=== PATIENT | female | born 1950 | race Caucasian/White ===

== ENCOUNTER 2021-12-08 17:01 | Inpatient (IN) ==
[2021-12-08] MEDS ORDERED: cefTRIAXone 1,000 MG in SODIUM CHLORIDE 0.9% 100 ML IV STA (17:30)
[2021-12-08] MEDS ORDERED: CLINDAMYCIN INJ 900 MG/50 ML PREMIX IV STA (17:30)
[2021-12-08] MEDS ORDERED: MORPHINE 2 MG/1 ML SYRINGE IV STA (17:32)
[2021-12-08] MEDS ORDERED: ONDANSETRON 4 MG/2 ML VIAL IV ONE (17:33)
[2021-12-08 17:55] LABS: INR 1.1; PT Patient Result 11.8 SECS (10.5-12.0)
[2021-12-08 18:05] LABS: Basophils % 0.3 % (0.0-0.8); Eosinophils % 0.4 % (0.00-10.9); Hematocrit 32.5 VOL% (35.7-47.0); Hemoglobin 9.8 GM/DL (12.0-16.0); Immature Granulocytes % 1.4 %; Lymphocytes # 0.7 10*3/uL (1.4-4.0); Lymphocytes % 10.1 % (21.3-54.2); Mean Corpuscular HGB Conc 30.2 GM/DL (32-36); Mean Corpuscular Volume 93.7 FL (87-102); Mean Platelet Volume 9.4 FL (9.6-12.0); Monocytes # 0.3 10*3/uL (0.11-0.8); Monocytes % 3.5 % (1.7-12.7); Neutrophils % 84.3 % (38.7-73.9); Platelet Count 281 T/CUMM (130-400); Red Blood Count 3.47 MC/CUMM (3.8-5.5); Red Cell Distribution Width 15.7 % (9.3-17.3); White Blood Count 7.1 T/CUMM (4-12)
[2021-12-08 18:18] LABS: Alanine Aminotransferase 18 U/L (13-56); Alkaline Phosphatase 185 U/L (45-117); Aspartate Amino Transferase 25 U/L (0-37); Bilirubin,Total < 0.39 MG/DL (0.20-1.00); Blood Urea Nitrogen 68 MG/DL (7-18); Calcium 9.7 MG/DL (8.5-10.1); Carbon Dioxide 19 MMOL/L (21-32); Chloride 110 MMOL/L (98-107); Glucose 104 MG/DL (74-106); Osmolality,Calculated 294.7 MOS/KG (273-304); Potassium 4.9 MMOL/L (3.5-5.1); Sodium 138 MMOL/L (136-145); Total Protein 8.4 G/DL (6.4-8.2)
[2021-12-08] MEDS ORDERED: ASPIRIN CHEW 81 MG TABLET PO STA (19:20)
[2021-12-08 19:50] LABS: Mucus,Urine Occasional /LPF (Occasional); RBC,Urine 78 /HPF (0-4); Squamous Epithelial Cell,Urine Occasional /HPF (0-10)
[2021-12-08 19:51] LABS: Protein,Urine 30 mg/dL (Negative); Urine Appearance Clear (Clear); Urine Color Yellow (Yellow); Urine Specific Gravity 1.015 (1.001-1.035); Urine pH 5.5 (4.5-8.0)
[2021-12-08 19:52] LABS: Bilirubin,Urine Negative (Negative); Blood, Urine Moderate mg/dL (Negative); Glucose,Urine (UA) Negative (Negative); Ketones,Urine Negative (Negative); Nitrite,Urine Negative (Negative); Urine Urobilinogen 0.2 eU/dL (<2.0)
[2021-12-08] MEDS ORDERED: ACETAMINOPHEN 325 MG TABLET PO PRN (21:02)
[2021-12-08] MEDS ORDERED: ONDANSETRON 4 MG/2 ML VIAL IV PRN (21:02)
[2021-12-08] MEDS ORDERED: TEMAZEPAM 15 MG CAPSULE PO PRN (22:17)
[2021-12-08] MEDS: MORPHINE 2 MG/1 ML SYRINGE IV PRN (22:23)
[2021-12-09] MEDS: DOCUSATE SODIUM 100 MG CAPSULE PO SCH ×3 (03:15→20:00)
[2021-12-09] MEDS: MONTELUKAST 10 MG TABLET PO SCH ×2 (03:15→20:00)
[2021-12-09] MEDS: BISOPROLOL 5 MG TABLET PO SCH ×3 (03:15→20:00)
[2021-12-09] MEDS: MORPHINE 2 MG/1 ML SYRINGE IV PRN ×4 (03:35→20:00)
[2021-12-09 05:37] LABS: Basophils % 0.5 % (0.0-0.8); Eosinophils % 0.7 % (0.00-10.9); Hemoglobin 9.8 GM/DL (12.0-16.0); Immature Granulocytes % 1.2 %; Immature Granulocytes Absolute 0.07 #; Lymphocytes # 0.7 10*3/uL (1.4-4.0); Lymphocytes % 11.8 % (21.3-54.2); Mean Corpuscular HGB Conc 30.6 GM/DL (32-36); Mean Corpuscular Volume 93.3 FL (87-102); Mean Platelet Volume 9.6 FL (9.6-12.0); Monocytes # 0.3 10*3/uL (0.11-0.8); Monocytes % 5.1 % (1.7-12.7); Neutrophils % 80.7 % (38.7-73.9); Platelet Count 283 T/CUMM (130-400); Red Blood Count 3.43 MC/CUMM (3.8-5.5); Red Cell Distribution Width 15.9 % (9.3-17.3)
[2021-12-09 05:56] LABS: Alanine Aminotransferase 16 U/L (13-56); Albumin 1.9 G/DL (3.4-5.0); Alkaline Phosphatase 178 U/L (45-117); Aspartate Amino Transferase 22 U/L (0-37); Bilirubin,Total < 0.39 MG/DL (0.20-1.00); Blood Urea Nitrogen 69 MG/DL (7-18); Calcium 8.9 MG/DL (8.5-10.1); Carbon Dioxide 18 MMOL/L (21-32); Chloride 112 MMOL/L (98-107); Cholesterol 104 MG/DL (50-200); Glucose 111 MG/DL (74-106); HDL Cholesterol 21 MG/DL (40-60); Osmolality,Calculated 297.5 MOS/KG (273-304); Potassium 4.6 MMOL/L (3.5-5.1); Risk Ratio 4.95; Sodium 139 MMOL/L (136-145); Total Protein 7.8 G/DL (6.4-8.2); Triglycerides 264 MG/DL (2-150); VLDL Cholesterol 52.8 MG/DL
[2021-12-09] MEDS: LEVOTHYROXINE 75 MCG TABLET PO SCH (05:58)
[2021-12-09 08:00] LABS: Band Neutrophils 14 % (0-10); Eosinophils 1 % (0-10); Lymphocytes 11 % (20-55); Metamyelocytes 2 %; Platelet Estimate Normal; Total Cells Counted 100
[2021-12-09 08:01] LABS: Anisocytosis Slight; Macrocytosis Slight
[2021-12-09] MEDS ORDERED: IPRATROPIUM 0.06% NASAL SPRAY 15 ML BOTTLE BOTH NARES PRN (09:00)
[2021-12-09] MEDS: PANTOPRAZOLE 40 MG TABLET PO SCH (09:35)
[2021-12-09] MEDS: SODIUM CHLORIDE 0.9% 1,000 ML IV SCH (16:53)
[2021-12-09] MEDS: RIVAROXABAN 10 MG TABLET PO SCH (20:00)
[2021-12-10] MEDS: MORPHINE 2 MG/1 ML SYRINGE IV PRN ×3 (00:45→20:40)
[2021-12-10 05:29] LABS: Basophils % 0.5 % (0.0-0.8); Eosinophils # 0.1 10*3/uL (0.0-0.87); Eosinophils % 1.3 % (0.00-10.9); Hematocrit 29.3 VOL% (35.7-47.0); Hemoglobin 8.7 GM/DL (12.0-16.0); Immature Granulocytes % 1.8 %; Lymphocytes # 0.8 10*3/uL (1.4-4.0); Mean Corpuscular HGB Conc 29.7 GM/DL (32-36); Mean Corpuscular Volume 93.6 FL (87-102); Mean Platelet Volume 9.5 FL (9.6-12.0); Monocytes # 0.4 10*3/uL (0.11-0.8); Monocytes % 6.9 % (1.7-12.7); Neutrophils % 75.5 % (38.7-73.9); Platelet Count 281 T/CUMM (130-400); Red Blood Count 3.13 MC/CUMM (3.8-5.5); White Blood Count 5.5 T/CUMM (4-12)
[2021-12-10 05:44] LABS: Calcium 8.5 MG/DL (8.5-10.1); Osmolality,Calculated 296.4 MOS/KG (273-304); Potassium 4.3 MMOL/L (3.5-5.1)
[2021-12-10] MEDS ORDERED: fentaNYL 100 MCG/2 ML VIAL ONE (07:26)
[2021-12-10] MEDS ORDERED: LIDOCAINE 1%/EPI INJ 20 ML VIAL ONE (07:27)
[2021-12-10] MEDS ORDERED: BUPIVACAINE MPF 0.25% 10 ML VIAL ONE (07:27)
[2021-12-10] MEDS ORDERED: MIDAZOLAM 2 MG/2 ML VIAL ONE (07:27)
[2021-12-10] MEDS ORDERED: diphenhydrAMINE 50 MG/1 ML VIAL IV PRN (07:29)
[2021-12-10] MEDS ORDERED: ONDANSETRON 4 MG/2 ML VIAL IV PRN (07:29)
[2021-12-10] MEDS ORDERED: PROMETHAZINE INJ 25 MG in SODIUM CHLORIDE 0.9% 50 ML IV PRN (07:29)
[2021-12-10] MEDS ORDERED: HYDROmorphone 1 MG/1 ML SYRINGE IV PRN (07:29)
[2021-12-10] MEDS: SODIUM CHLORIDE 0.9% 1,000 ML IV SCH ×3 (08:06→20:40)
[2021-12-10] MEDS: LEVOTHYROXINE 75 MCG TABLET PO SCH (08:08)
[2021-12-10] MEDS ORDERED: CLINDAMYCIN INJ 600 MG/50 ML PREMIX IV ONE (08:33)
[2021-12-10] MEDS ORDERED: propofoL 200 MG/20 ML VIAL IV ONE ×2 (08:44→08:52)
[2021-12-10] MEDS ORDERED: LIDOCAINE 2% 5 ML VIAL ONE (08:44)
[2021-12-10] MEDS: MEPERIDINE 25 MG/1 ML VIAL IV PRN ×2 (09:10→09:20)
[2021-12-10] MEDS: PANTOPRAZOLE 40 MG TABLET PO SCH (10:12)
[2021-12-10] MEDS: DOCUSATE SODIUM 100 MG CAPSULE PO SCH ×2 (10:12→20:40)
[2021-12-10] MEDS: BISOPROLOL 5 MG TABLET PO SCH ×2 (10:13→20:40)
[2021-12-10] MEDS: ALBUMIN 25% 25 GM/100 ML VIAL IV SCH ×2 (11:16→18:45)
[2021-12-10] MEDS: CLINDAMYCIN INJ 600 MG/50 ML PREMIX IV SCH ×3 (11:16→21:00)
[2021-12-10] MEDS: MEROPENEM 500 MG in SODIUM CHLORIDE 0.9% 100 ML IV SCH (15:54)
[2021-12-10] MEDS: MONTELUKAST 10 MG TABLET PO SCH (20:40)
[2021-12-10] MEDS: MIRTAZAPINE 15 MG TABLET PO SCH (20:40)
[2021-12-11] MEDS: ALBUMIN 25% 25 GM/100 ML VIAL IV SCH ×3 (01:00→19:19)
[2021-12-11] MEDS: MEROPENEM 500 MG in SODIUM CHLORIDE 0.9% 100 ML IV SCH (02:00)
[2021-12-11] MEDS: CLINDAMYCIN INJ 600 MG/50 ML PREMIX IV SCH ×4 (03:00→22:02)
[2021-12-11] MEDS: LEVOTHYROXINE 75 MCG TABLET PO SCH (05:30)
[2021-12-11 05:41] LABS: Basophils % 0.8 % (0.0-0.8); Eosinophils # 0.2 10*3/uL (0.0-0.87); Eosinophils % 4.6 % (0.00-10.9); Hematocrit 22.8 VOL% (35.7-47.0); Hemoglobin 6.9 GM/DL (12.0-16.0); Immature Granulocytes % 2.8 %; Immature Granulocytes Absolute 0.14 #; Lymphocytes # 0.9 10*3/uL (1.4-4.0); Lymphocytes % 18.4 % (21.3-54.2); Mean Corpuscular HGB Conc 30.3 GM/DL (32-36); Mean Corpuscular Volume 94.2 FL (87-102); Mean Platelet Volume 9.8 FL (9.6-12.0); Monocytes # 0.4 10*3/uL (0.11-0.8); Monocytes % 7.8 % (1.7-12.7); Neutrophils % 65.6 % (38.7-73.9); Platelet Count 240 T/CUMM (130-400); Red Blood Count 2.42 MC/CUMM (3.8-5.5); Red Cell Distribution Width 15.8 % (9.3-17.3)
[2021-12-11 06:09] LABS: Calcium 8.6 MG/DL (8.5-10.1); Osmolality,Calculated 294.4 MOS/KG (273-304)
[2021-12-11] MEDS: MORPHINE 2 MG/1 ML SYRINGE IV PRN ×2 (08:03→11:16)
[2021-12-11] MEDS: PANTOPRAZOLE 40 MG TABLET PO SCH (08:10)
[2021-12-11] MEDS: BISOPROLOL 5 MG TABLET PO SCH ×2 (08:10→21:17)
[2021-12-11] MEDS: DOCUSATE SODIUM 100 MG CAPSULE PO SCH ×2 (08:10→21:17)
[2021-12-11] MEDS ORDERED: SODIUM CHLORIDE 0.9% 1,000 ML IV PRN (11:42)
[2021-12-11] MEDS: HYDROmorphone 1 MG/1 ML SYRINGE IV PRN (17:48)
[2021-12-11] MEDS: SODIUM CHLORIDE 0.9% 1,000 ML IV SCH (19:43)
[2021-12-11] MEDS: MIRTAZAPINE 15 MG TABLET PO SCH (21:16)
[2021-12-11] MEDS: MONTELUKAST 10 MG TABLET PO SCH (21:17)
[2021-12-12] MEDS: SODIUM CHLORIDE 0.9% 1,000 ML IV SCH ×2 (00:49→17:27)
[2021-12-12] MEDS: ALBUMIN 25% 25 GM/100 ML VIAL IV SCH ×2 (02:23→15:23)
[2021-12-12] MEDS: HYDROmorphone 1 MG/1 ML SYRINGE IV PRN ×5 (03:49→21:15)
[2021-12-12] MEDS: CLINDAMYCIN INJ 600 MG/50 ML PREMIX IV SCH ×4 (04:05→21:15)
[2021-12-12 04:55] LABS: Basophils % 0.8 % (0.0-0.8); Eosinophils # 0.2 10*3/uL (0.0-0.87); Eosinophils % 4.8 % (0.00-10.9); Hematocrit 25.3 VOL% (35.7-47.0); Hemoglobin 7.7 GM/DL (12.0-16.0); Lymphocytes % 20.6 % (21.3-54.2); Mean Corpuscular HGB Conc 30.4 GM/DL (32-36); Mean Corpuscular Volume 91.7 FL (87-102); Monocytes # 0.4 10*3/uL (0.11-0.8); Monocytes % 7.9 % (1.7-12.7); Neutrophils % 61.9 % (38.7-73.9); Platelet Count 252 T/CUMM (130-400); Red Blood Count 2.76 MC/CUMM (3.8-5.5); Red Cell Distribution Width 16.9 % (9.3-17.3); White Blood Count 5.1 T/CUMM (4-12)
[2021-12-12 05:15] LABS: Albumin 2.8 G/DL (3.4-5.0); Bilirubin,Direct 0.11 MG/DL (0.0-0.20); Bilirubin,Indirect 0.3 MG/DL (0.0-1.0); Bilirubin,Total 0.4 MG/DL (0.20-1.00)
[2021-12-12 05:17] LABS: Calcium 8.8 MG/DL (8.5-10.1); Osmolality,Calculated 293.5 MOS/KG (273-304); Potassium 4.2 MMOL/L (3.5-5.1)
[2021-12-12] MEDS: LEVOTHYROXINE 75 MCG TABLET PO SCH (05:53)
[2021-12-12] MEDS ORDERED: propofoL 200 MG/20 ML VIAL IV ONE ×3 (11:55→13:07)
[2021-12-12] MEDS ORDERED: LIDOCAINE 2% 5 ML VIAL ONE (11:55)
[2021-12-12] MEDS ORDERED: ONDANSETRON 4 MG/2 ML VIAL ONE (11:55)
[2021-12-12] MEDS ORDERED: fentaNYL 100 MCG/2 ML VIAL ONE (11:55)
[2021-12-12] MEDS ORDERED: MIDAZOLAM 2 MG/2 ML VIAL ONE (11:55)
[2021-12-12] MEDS ORDERED: BUPIVACAINE MPF 0.25% 10 ML VIAL ONE (12:11)
[2021-12-12] MEDS ORDERED: LIDOCAINE 1%/EPI INJ 20 ML VIAL ONE (12:12)
[2021-12-12] MEDS ORDERED: GLYCOPYRROLATE 0.4 MG/2 ML VIAL ONE (12:29)
[2021-12-12] MEDS ORDERED: KETAMINE 500 MG/10 ML VIAL ONE (12:29)
[2021-12-12] MEDS ORDERED: ONDANSETRON 4 MG/2 ML VIAL IV PRN (13:57)
[2021-12-12] MEDS ORDERED: SODIUM CHLORIDE 0.9% 1,000 ML IV PRN (14:57)
[2021-12-12] MEDS: DOCUSATE SODIUM 100 MG CAPSULE PO SCH ×2 (15:05→21:15)
[2021-12-12] MEDS: BISOPROLOL 5 MG TABLET PO SCH ×2 (15:28→21:15)
[2021-12-12] MEDS: PANTOPRAZOLE 40 MG TABLET PO SCH (17:26)
[2021-12-12] MEDS: FLUCONAZOLE INJ 200 MG/100 ML PREMIX IV SCH (18:06)
[2021-12-12] MEDS: MIRTAZAPINE 15 MG TABLET PO SCH (21:15)
[2021-12-12] MEDS: MONTELUKAST 10 MG TABLET PO SCH (21:15)
[2021-12-13] MEDS: ALBUMIN 25% 25 GM/100 ML VIAL IV SCH ×3 (03:52→22:51)
[2021-12-13] MEDS: HYDROmorphone 1 MG/1 ML SYRINGE IV PRN ×4 (03:53→20:42)
[2021-12-13 05:36] LABS: Basophils % 0.5 % (0.0-0.8); Eosinophils # 0.2 10*3/uL (0.0-0.87); Eosinophils % 3.8 % (0.00-10.9); Hematocrit 29.4 VOL% (35.7-47.0); Immature Granulocytes % 4.9 %; Immature Granulocytes Absolute 0.31 #; Lymphocytes # 0.9 10*3/uL (1.4-4.0); Lymphocytes % 14.2 % (21.3-54.2); Mean Corpuscular HGB Conc 30.6 GM/DL (32-36); Mean Corpuscular Volume 89.6 FL (87-102); Monocytes # 0.4 10*3/uL (0.11-0.8); Monocytes % 6.5 % (1.7-12.7); Neutrophils % 70.1 % (38.7-73.9); Platelet Count 307 T/CUMM (130-400); Red Blood Count 3.28 MC/CUMM (3.8-5.5); Red Cell Distribution Width 16.9 % (9.3-17.3); White Blood Count 6.3 T/CUMM (4-12)
[2021-12-13] MEDS: LEVOTHYROXINE 75 MCG TABLET PO SCH (05:53)
[2021-12-13] MEDS: CLINDAMYCIN INJ 600 MG/50 ML PREMIX IV SCH ×4 (05:53→22:03)
[2021-12-13 05:57] LABS: Calcium 8.9 MG/DL (8.5-10.1); Osmolality,Calculated 291.4 MOS/KG (273-304); Potassium 4.3 MMOL/L (3.5-5.1)
[2021-12-13] MEDS: LACTATED RINGERS 1,000 ML IV SCH (11:03)
[2021-12-13] MEDS ORDERED: ETOMIDATE 20 MG/10 ML VIAL IV ONE (11:21)
[2021-12-13] MEDS ORDERED: propofoL 200 MG/20 ML VIAL IV ONE ×2 (11:21→13:28)
[2021-12-13] MEDS ORDERED: LIDOCAINE 2% 5 ML VIAL ONE ×2 (11:21→13:28)
[2021-12-13] MEDS: SODIUM CHLORIDE 0.9% 1,000 ML IV SCH (12:00)
[2021-12-13] MEDS ORDERED: MIDAZOLAM 2 MG/2 ML VIAL ONE (12:43)
[2021-12-13] MEDS ORDERED: fentaNYL 100 MCG/2 ML VIAL ONE (12:43)
[2021-12-13] MEDS ORDERED: BUPIVACAINE MPF 0.25% 10 ML VIAL ONE (13:04)
[2021-12-13] MEDS ORDERED: LIDOCAINE 1%/EPI INJ 20 ML VIAL ONE (13:04)
[2021-12-13] MEDS ORDERED: ONDANSETRON 4 MG/2 ML VIAL ONE (13:28)
[2021-12-13] MEDS: BISOPROLOL 5 MG TABLET PO SCH ×2 (14:52→20:41)
[2021-12-13] MEDS: DOCUSATE SODIUM 100 MG CAPSULE PO SCH ×2 (14:52→20:41)
[2021-12-13] MEDS: PANTOPRAZOLE 40 MG TABLET PO SCH (14:54)
[2021-12-13] MEDS: SODIUM BICARB INJ 50 MEQ in DEXTROSE 5% NACL 0.45% 1,000 ML IV SCH (16:01)
[2021-12-13] MEDS: FLUCONAZOLE INJ 200 MG/100 ML PREMIX IV SCH (17:23)
[2021-12-13] MEDS: MONTELUKAST 10 MG TABLET PO SCH (20:41)
[2021-12-13] MEDS: MIRTAZAPINE 15 MG TABLET PO SCH (20:41)
[2021-12-13] MEDS: RIVAROXABAN 10 MG TABLET PO SCH (20:42)
[2021-12-14] MEDS: SODIUM BICARB INJ 50 MEQ in DEXTROSE 5% NACL 0.45% 1,000 ML IV SCH (02:29)
[2021-12-14 05:46] LABS: Basophils % 0.6 % (0.0-0.8); Eosinophils # 0.2 10*3/uL (0.0-0.87); Eosinophils % 4.7 % (0.00-10.9); Hematocrit 25.5 VOL% (35.7-47.0); Hemoglobin 7.8 GM/DL (12.0-16.0); Immature Granulocytes Absolute 0.14 #; Lymphocytes # 0.9 10*3/uL (1.4-4.0); Lymphocytes % 18.7 % (21.3-54.2); Mean Corpuscular HGB Conc 30.6 GM/DL (32-36); Mean Corpuscular Volume 88.9 FL (87-102); Mean Platelet Volume 10.5 FL (9.6-12.0); Monocytes # 0.3 10*3/uL (0.11-0.8); Monocytes % 5.7 % (1.7-12.7); Neutrophils % 67.3 % (38.7-73.9); Platelet Count 278 T/CUMM (130-400); Red Blood Count 2.87 MC/CUMM (3.8-5.5); Red Cell Distribution Width 17.3 % (9.3-17.3); White Blood Count 4.7 T/CUMM (4-12)
[2021-12-14 06:04] LABS: Albumin 3.6 G/DL (3.4-5.0); Bilirubin,Total 0.4 MG/DL (0.20-1.00); Calcium 8.7 MG/DL (8.5-10.1); Osmolality,Calculated 292.3 MOS/KG (273-304); Potassium 3.6 MMOL/L (3.5-5.1); Total Protein 7.1 G/DL (6.4-8.2)
[2021-12-14] MEDS: CLINDAMYCIN INJ 600 MG/50 ML PREMIX IV SCH ×4 (06:04→21:34)
[2021-12-14] MEDS: LEVOTHYROXINE 75 MCG TABLET PO SCH (06:04)
[2021-12-14 06:51] LABS: Anisocytosis 1+; Platelet Estimate Adequate
[2021-12-14] MEDS: ALBUMIN 25% 25 GM/100 ML VIAL IV SCH ×2 (10:00→18:10)
[2021-12-14] MEDS: PANTOPRAZOLE 40 MG TABLET PO SCH (10:01)
[2021-12-14] MEDS: DOCUSATE SODIUM 100 MG CAPSULE PO SCH ×2 (10:01→21:27)
[2021-12-14] MEDS: BISOPROLOL 5 MG TABLET PO SCH ×2 (10:01→21:27)
[2021-12-14] MEDS: LACTATED RINGERS 1,000 ML IV SCH (10:02)
[2021-12-14] MEDS ORDERED: MAGNESIUM SULF RIDER 2 GM/50 ML PREMIX IV ONE (10:38)
[2021-12-14] MEDS ORDERED: SODIUM CHLORIDE 0.9% 1,000 ML IV PRN (10:45)
[2021-12-14] MEDS: SODIUM CHLORIDE 0.45% 1,000 ML IV SCH (11:27)
[2021-12-14] MEDS: FLUCONAZOLE INJ 200 MG/100 ML PREMIX IV SCH (18:10)
[2021-12-14] MEDS: FERROUS SULFATE 325 MG TABLET PO SCH (21:27)
[2021-12-14] MEDS: MIRTAZAPINE 15 MG TABLET PO SCH (21:27)
[2021-12-14] MEDS: MONTELUKAST 10 MG TABLET PO SCH (21:27)
[2021-12-15] MEDS: ALBUMIN 25% 25 GM/100 ML VIAL IV SCH ×4 (00:42→23:21)
[2021-12-15 04:47] LABS: Basophils % 0.8 % (0.0-0.8); Eosinophils # 0.2 10*3/uL (0.0-0.87); Eosinophils % 5.9 % (0.00-10.9); Hematocrit 28.2 VOL% (35.7-47.0); Hemoglobin 8.9 GM/DL (12.0-16.0); Immature Granulocytes % 3.5 %; Immature Granulocytes Absolute 0.13 #; Lymphocytes # 0.7 10*3/uL (1.4-4.0); Lymphocytes % 19.7 % (21.3-54.2); Mean Corpuscular HGB Conc 31.6 GM/DL (32-36); Mean Corpuscular Volume 88.4 FL (87-102); Mean Platelet Volume 10.8 FL (9.6-12.0); Monocytes # 0.2 10*3/uL (0.11-0.8); Monocytes % 5.6 % (1.7-12.7); Neutrophils % 64.5 % (38.7-73.9); Platelet Count 224 T/CUMM (130-400); Red Blood Count 3.19 MC/CUMM (3.8-5.5); Red Cell Distribution Width 16.8 % (9.3-17.3); White Blood Count 3.8 T/CUMM (4-12)
[2021-12-15 05:10] LABS: Albumin 3.8 G/DL (3.4-5.0); Bilirubin,Total 0.5 MG/DL (0.20-1.00); Calcium 8.7 MG/DL (8.5-10.1); Osmolality,Calculated 288.4 MOS/KG (273-304); Potassium 3.3 MMOL/L (3.5-5.1); Total Protein 7.1 G/DL (6.4-8.2)
[2021-12-15 05:17] LABS: Hypochromia Slight; Platelet Estimate Normal
[2021-12-15] MEDS: CLINDAMYCIN INJ 600 MG/50 ML PREMIX IV SCH ×4 (06:37→21:44)
[2021-12-15] MEDS: SODIUM CHLORIDE 0.45% 1,000 ML IV SCH ×3 (06:37→17:17)
[2021-12-15] MEDS: LEVOTHYROXINE 75 MCG TABLET PO SCH (06:39)
[2021-12-15] MEDS ORDERED: LIDOCAINE 2% 5 ML VIAL ONE (08:09)
[2021-12-15] MEDS ORDERED: propofoL 200 MG/20 ML VIAL IV ONE (08:09)
[2021-12-15] MEDS ORDERED: ONDANSETRON 4 MG/2 ML VIAL ONE (08:09)
[2021-12-15] MEDS ORDERED: fentaNYL 100 MCG/2 ML VIAL ONE (08:10)
[2021-12-15] MEDS: LACTATED RINGERS 1,000 ML IV SCH (09:19)
[2021-12-15] MEDS ORDERED: SEVOFLURANE 1 UNIT/15 MINUTE INH ONE (09:19)
[2021-12-15] MEDS ORDERED: ONDANSETRON 4 MG/2 ML VIAL IV PRN (09:24)
[2021-12-15] MEDS: HYDROmorphone 1 MG/1 ML SYRINGE IV PRN ×2 (09:27→09:32)
[2021-12-15] MEDS: FERROUS SULFATE 325 MG TABLET PO SCH ×2 (10:24→21:46)
[2021-12-15] MEDS: BISOPROLOL 5 MG TABLET PO SCH ×2 (10:24→21:46)
[2021-12-15] MEDS: PANTOPRAZOLE 40 MG TABLET PO SCH (10:24)
[2021-12-15] MEDS: LORATADINE 10 MG TABLET PO PRN (10:24)
[2021-12-15] MEDS: ASPIRIN EC 81 MG TABLET PO SCH (10:25)
[2021-12-15] MEDS: DOCUSATE SODIUM 100 MG CAPSULE PO SCH ×2 (10:25→21:46)
[2021-12-15] MEDS ORDERED: POTASSIUM CHLORIDE RIDER 10 MEQ/100 ML PREMIX IV PRN (14:08)
[2021-12-15] MEDS ORDERED: POTASSIUM CHLORIDE 20 MEQ TABLET PO PRN (14:08)
[2021-12-15] MEDS: FLUCONAZOLE INJ 200 MG/100 ML PREMIX IV SCH (16:48)
[2021-12-15] MEDS: MIRTAZAPINE 15 MG TABLET PO SCH (21:46)
[2021-12-15] MEDS: MONTELUKAST 10 MG TABLET PO SCH (21:46)
[2021-12-16] MEDS: SODIUM CHLORIDE 0.45% 1,000 ML IV SCH ×2 (03:10→13:49)
[2021-12-16] MEDS: CLINDAMYCIN INJ 600 MG/50 ML PREMIX IV SCH ×4 (05:04→21:27)
[2021-12-16] MEDS: LEVOTHYROXINE 75 MCG TABLET PO SCH (05:04)
[2021-12-16 05:56] LABS: Basophils % 1.1 % (0.0-0.8); Eosinophils # 0.2 10*3/uL (0.0-0.87); Eosinophils % 5.7 % (0.00-10.9); Hematocrit 30.8 VOL% (35.7-47.0); Hemoglobin 9.6 GM/DL (12.0-16.0); Immature Granulocytes Absolute 0.14 #; Lymphocytes # 0.8 10*3/uL (1.4-4.0); Lymphocytes % 23.6 % (21.3-54.2); Mean Corpuscular HGB Conc 31.2 GM/DL (32-36); Mean Corpuscular Volume 87.5 FL (87-102); Mean Platelet Volume 10.7 FL (9.6-12.0); Monocytes # 0.1 10*3/uL (0.11-0.8); Neutrophils % 61.6 % (38.7-73.9); Platelet Count 248 T/CUMM (130-400); Red Blood Count 3.52 MC/CUMM (3.8-5.5); Red Cell Distribution Width 17.2 % (9.3-17.3); White Blood Count 3.5 T/CUMM (4-12)
[2021-12-16 06:26] LABS: Albumin 4.1 G/DL (3.4-5.0); Bilirubin,Total 0.5 MG/DL (0.20-1.00); Calcium 8.6 MG/DL (8.5-10.1); Osmolality,Calculated 284.5 MOS/KG (273-304); Potassium 3.2 MMOL/L (3.5-5.1); Total Protein 7.6 G/DL (6.4-8.2)
[2021-12-16 06:29] LABS: Band Neutrophils 2 % (0-10); Eosinophils 8 % (0-10); Lymphocytes 30 % (20-55); Total Cells Counted 100
[2021-12-16 06:30] LABS: Hypochromia Slight; Microcytosis 1+; Platelet Estimate Normal
[2021-12-16] MEDS: DOCUSATE SODIUM 100 MG CAPSULE PO SCH ×2 (09:33→21:27)
[2021-12-16] MEDS: LORATADINE 10 MG TABLET PO PRN (09:33)
[2021-12-16] MEDS: ASPIRIN EC 81 MG TABLET PO SCH (09:34)
[2021-12-16] MEDS: BISOPROLOL 5 MG TABLET PO SCH ×2 (09:34→21:26)
[2021-12-16] MEDS: FERROUS SULFATE 325 MG TABLET PO SCH ×2 (09:34→21:27)
[2021-12-16] MEDS: LACTATED RINGERS 1,000 ML IV SCH (09:35)
[2021-12-16] MEDS: ALBUMIN 25% 25 GM/100 ML VIAL IV SCH ×2 (09:35→14:56)
[2021-12-16] MEDS: PANTOPRAZOLE 40 MG TABLET PO SCH (09:36)
[2021-12-16] MEDS: FLUCONAZOLE INJ 200 MG/100 ML PREMIX IV SCH (16:09)
[2021-12-16] MEDS: MONTELUKAST 10 MG TABLET PO SCH (21:26)
[2021-12-16] MEDS: MIRTAZAPINE 15 MG TABLET PO SCH (21:27)
[2021-12-16] MEDS: traMADol 50 MG TABLET PO PRN (21:27)
[2021-12-17] MEDS: ALBUMIN 25% 25 GM/100 ML VIAL IV SCH ×2 (02:56→09:39)
[2021-12-17] MEDS: SODIUM CHLORIDE 0.45% 1,000 ML IV SCH ×3 (05:50→22:34)
[2021-12-17] MEDS: CLINDAMYCIN INJ 600 MG/50 ML PREMIX IV SCH ×4 (07:04→19:07)
[2021-12-17] MEDS: LEVOTHYROXINE 75 MCG TABLET PO SCH (07:22)
[2021-12-17] MEDS: BISOPROLOL 5 MG TABLET PO SCH ×2 (09:36→21:05)
[2021-12-17] MEDS: PANTOPRAZOLE 40 MG TABLET PO SCH (09:36)
[2021-12-17] MEDS: FERROUS SULFATE 325 MG TABLET PO SCH ×2 (09:36→21:05)
[2021-12-17] MEDS: ASPIRIN EC 81 MG TABLET PO SCH (09:36)
[2021-12-17] MEDS: DOCUSATE SODIUM 100 MG CAPSULE PO SCH ×2 (09:39→21:07)
[2021-12-17] MEDS ORDERED: MAGNESIUM SULF RIDER 2 GM/50 ML PREMIX IV ONE (10:35)
[2021-12-17] MEDS: LACTATED RINGERS 1,000 ML IV SCH (11:00)
[2021-12-17] MEDS: FLUCONAZOLE INJ 200 MG/100 ML PREMIX IV SCH (16:44)
[2021-12-17] MEDS: MIRTAZAPINE 15 MG TABLET PO SCH (21:05)
[2021-12-17] MEDS: MONTELUKAST 10 MG TABLET PO SCH (21:05)
[2021-12-18] MEDS: CLINDAMYCIN INJ 600 MG/50 ML PREMIX IV SCH ×4 (00:28→20:39)
[2021-12-18] MEDS: traMADol 50 MG TABLET PO PRN ×3 (02:25→22:39)
[2021-12-18] MEDS: LEVOTHYROXINE 75 MCG TABLET PO SCH (06:23)
[2021-12-18] MEDS: PANTOPRAZOLE 40 MG TABLET PO SCH (08:42)
[2021-12-18] MEDS: BISOPROLOL 5 MG TABLET PO SCH ×2 (08:42→20:39)
[2021-12-18] MEDS: ASPIRIN EC 81 MG TABLET PO SCH (08:42)
[2021-12-18] MEDS: FERROUS SULFATE 325 MG TABLET PO SCH ×2 (08:43→20:39)
[2021-12-18] MEDS: SODIUM CHLORIDE 0.45% 1,000 ML IV SCH ×2 (09:45→22:39)
[2021-12-18] MEDS: DOCUSATE SODIUM 100 MG CAPSULE PO SCH (11:14)
[2021-12-18] MEDS: FLUCONAZOLE INJ 200 MG/100 ML PREMIX IV SCH (15:59)
[2021-12-18] MEDS ORDERED: POTASSIUM CHLORIDE 20 MEQ TABLET PO ONE (16:58)
[2021-12-18] MEDS: MIRTAZAPINE 15 MG TABLET PO SCH (20:39)
[2021-12-18] MEDS: MONTELUKAST 10 MG TABLET PO SCH (20:39)
[2021-12-19] MEDS: DOCUSATE SODIUM 100 MG CAPSULE PO SCH ×2 (01:56→09:46)
[2021-12-19] MEDS: CLINDAMYCIN INJ 600 MG/50 ML PREMIX IV SCH ×2 (03:52→06:45)
[2021-12-19 04:13] LABS: Basophils # 0.1 10*3/uL (0.0-0.2); Basophils % 1.3 % (0.0-0.8); Eosinophils # 0.1 10*3/uL (0.0-0.87); Eosinophils % 3.5 % (0.00-10.9); Hematocrit 32.4 VOL% (35.7-47.0); Hemoglobin 10.1 GM/DL (12.0-16.0); Immature Granulocytes % 1.8 %; Immature Granulocytes Absolute 0.07 #; Lymphocytes % 24.7 % (21.3-54.2); Mean Corpuscular HGB Conc 31.2 GM/DL (32-36); Mean Corpuscular Volume 88.5 FL (87-102); Mean Platelet Volume 10.2 FL (9.6-12.0); Monocytes # 0.2 10*3/uL (0.11-0.8); Monocytes % 3.8 % (1.7-12.7); Neutrophils % 64.9 % (38.7-73.9); Platelet Count 230 T/CUMM (130-400); Red Blood Count 3.66 MC/CUMM (3.8-5.5); Red Cell Distribution Width 17.6 % (9.3-17.3)
[2021-12-19 04:35] LABS: Albumin 3.7 G/DL (3.4-5.0); Bilirubin,Total 0.5 MG/DL (0.20-1.00); Calcium 8.7 MG/DL (8.5-10.1); Osmolality,Calculated 278.8 MOS/KG (273-304); Potassium 4.3 MMOL/L (3.5-5.1); Total Protein 7.8 G/DL (6.4-8.2)
[2021-12-19] MEDS: LEVOTHYROXINE 75 MCG TABLET PO SCH (06:45)
[2021-12-19] MEDS ORDERED: POTASSIUM CHLORIDE 20 MEQ TABLET PO SCH (09:00)
[2021-12-19] MEDS: BISOPROLOL 5 MG TABLET PO SCH (09:43)
[2021-12-19] MEDS: FERROUS SULFATE 325 MG TABLET PO SCH (09:43)
[2021-12-19] MEDS: ASPIRIN EC 81 MG TABLET PO SCH (09:44)
[2021-12-19] MEDS: PANTOPRAZOLE 40 MG TABLET PO SCH (09:44)
[2021-12-19] MEDS: SODIUM CHLORIDE 0.45% 1,000 ML IV SCH ×2 (09:51→16:20)
[2021-12-19] MEDS: LACTATED RINGERS 1,000 ML IV SCH ×2 (09:54→15:12)
[2021-12-19 12:25] VITALS: BP 120/50
[2021-12-19] MEDS ORDERED: cephALEXin 500 MG CAPSULE PO SCH (21:00)
== END 2021-12-19 16:35 | disposition home health service (06) | DRG 571 ==
LOC: EDUNIT# → EDBD → N.EDINP 17:01 → N.ED 17:01 → N.TELES 12-09 04:14
PROVIDERS: ADMIT Internal Medicine; ATTEND Internal Medicine

== ENCOUNTER 2021-12-24 08:34 | Inpatient (IN) ==
[2021-12-24] MEDS ORDERED: ALBUTEROL/IPRATROPIUM 3 ML NEB RESP TX STA (09:23)
[2021-12-24 09:34] LABS: Basophils # 0.1 10*3/uL (0.0-0.2); Basophils % 1.5 % (0.0-0.8); Hematocrit 30.2 VOL% (35.7-47.0); Hemoglobin 9.2 GM/DL (12.0-16.0); Immature Granulocytes % 0.9 %; Immature Granulocytes Absolute 0.03 #; Lymphocytes % 30.6 % (21.3-54.2); Mean Corpuscular HGB Conc 30.5 GM/DL (32-36); Mean Corpuscular Volume 91.2 FL (87-102); Mean Platelet Volume 11.7 FL (9.6-12.0); Monocytes # 0.2 10*3/uL (0.11-0.8); Monocytes % 4.6 % (1.7-12.7); Neutrophils % 62.4 % (38.7-73.9); Platelet Count 136 T/CUMM (130-400); Red Blood Count 3.31 MC/CUMM (3.8-5.5); Red Cell Distribution Width 18.4 % (9.3-17.3); White Blood Count 3.2 T/CUMM (4-12)
[2021-12-24 09:50] LABS: Alanine Aminotransferase 17 U/L (13-56); Albumin 3.3 G/DL (3.4-5.0); Alkaline Phosphatase 180 U/L (45-117); Aspartate Amino Transferase 34 U/L (0-37); Bilirubin,Total < 0.39 MG/DL (0.20-1.00); Blood Urea Nitrogen 41 MG/DL (7-18); Calcium 8.7 MG/DL (8.5-10.1); Carbon Dioxide 19 MMOL/L (21-32); Chloride 112 MMOL/L (98-107); Glucose 114 MG/DL (74-106); Osmolality,Calculated 293.1 MOS/KG (273-304); Sodium 142 MMOL/L (136-145); Total Protein 7.8 G/DL (6.4-8.2)
[2021-12-24] MEDS: CLINDAMYCIN INJ 600 MG/50 ML PREMIX IV SCH ×2 (12:00→20:51)
[2021-12-24] MEDS ORDERED: ONDANSETRON 4 MG/2 ML VIAL IV PRN (13:11)
[2021-12-24] MEDS ORDERED: ACETAMINOPHEN 325 MG TABLET PO PRN ×2 (13:11→14:02)
[2021-12-24] MEDS ORDERED: LORATADINE 10 MG TABLET PO PRN (14:02)
[2021-12-24] MEDS ORDERED: DOCUSATE SODIUM 100 MG CAPSULE PO PRN (14:02)
[2021-12-24] MEDS ORDERED: traMADol 50 MG TABLET PO PRN (14:02)
[2021-12-24] MEDS ORDERED: TEMAZEPAM 15 MG CAPSULE PO PRN (14:02)
[2021-12-24] MEDS: SODIUM CHLORIDE 0.45% 1,000 ML IV SCH (14:56)
[2021-12-24] MEDS: FLUCONAZOLE INJ 200 MG/100 ML PREMIX IV SCH (14:56)
[2021-12-24] MEDS: MORPHINE 2 MG/1 ML SYRINGE IV PRN ×2 (15:30→22:03)
[2021-12-24] MEDS: NYSTATIN 500,000 UNIT/5 ML UDCUP SWISH/SWAL SCH ×2 (16:51→23:18)
[2021-12-24] MEDS: FERROUS SULFATE 325 MG TABLET PO SCH (16:51)
[2021-12-24] MEDS ORDERED: RIVAROXABAN 15 MG TABLET PO SCH (17:00)
[2021-12-24] MEDS ORDERED: CLINDAMYCIN INJ 600 MG/50 ML PREMIX IV SCH (20:00)
[2021-12-24 21:55] LABS: Alanine Aminotransferase 12 U/L (13-56); Albumin 3.1 G/DL (3.4-5.0); Alkaline Phosphatase 143 U/L (45-117); Aspartate Amino Transferase 27 U/L (0-37); Bilirubin,Indirect 0.2 MG/DL (0.0-1.0); Bilirubin,Total < 0.39 MG/DL (0.20-1.00); Total Protein 7.7 G/DL (6.4-8.2)
[2021-12-24] MEDS: BENZONATATE 100 MG CAPSULE PO SCH (23:16)
[2021-12-24] MEDS: BISOPROLOL 5 MG TABLET PO SCH (23:16)
[2021-12-24] MEDS: MONTELUKAST 10 MG TABLET PO SCH (23:16)
[2021-12-24] MEDS: MIRTAZAPINE 15 MG TABLET PO SCH (23:16)
[2021-12-24] MEDS: DOCUSATE SODIUM 100 MG CAPSULE PO SCH (23:18)
[2021-12-25] MEDS: BENZONATATE 100 MG CAPSULE PO SCH ×4 (00:26→22:44)
[2021-12-25] MEDS: ALBUTEROL/IPRATROPIUM 3 ML NEB RESP TX SCH ×2 (00:26→07:24)
[2021-12-25] MEDS: SODIUM CHLORIDE 0.45% 1,000 ML IV SCH (03:03)
[2021-12-25] MEDS: MENTHOL/ZINC OXIDE OINT 71 GM JAR TOP SCH ×3 (04:17→22:45)
[2021-12-25] MEDS ORDERED: FUROSEMIDE 20 MG/2 ML VIAL IV ONE (04:41)
[2021-12-25] MEDS: CLINDAMYCIN INJ 600 MG/50 ML PREMIX IV SCH ×3 (05:12→21:40)
[2021-12-25 05:25] LABS: Basophils # 0.1 10*3/uL (0.0-0.2); Hematocrit 27.7 VOL% (35.7-47.0); Hemoglobin 8.4 GM/DL (12.0-16.0); Immature Granulocytes % 0.6 %; Immature Granulocytes Absolute 0.03 #; Lymphocytes # 1.2 10*3/uL (1.4-4.0); Mean Corpuscular HGB Conc 30.3 GM/DL (32-36); Mean Corpuscular Volume 91.4 FL (87-102); Mean Platelet Volume 11.6 FL (9.6-12.0); Monocytes # 0.3 10*3/uL (0.11-0.8); Monocytes % 5.4 % (1.7-12.7); Platelet Count 139 T/CUMM (130-400); Red Blood Count 3.03 MC/CUMM (3.8-5.5); Red Cell Distribution Width 18.2 % (9.3-17.3); White Blood Count 5.2 T/CUMM (4-12)
[2021-12-25 05:45] LABS: Band Neutrophils 1 % (0-10); Hypochromia Slight; Lymphocytes 21 % (20-55); Microcytosis Slight; Platelet Estimate Normal; Total Cells Counted 100
[2021-12-25 05:47] LABS: Calcium 8.7 MG/DL (8.5-10.1); Osmolality,Calculated 292.3 MOS/KG (273-304); Potassium 4.7 MMOL/L (3.5-5.1)
[2021-12-25] MEDS: LEVOTHYROXINE 75 MCG TABLET PO SCH (06:49)
[2021-12-25] MEDS: BISOPROLOL 5 MG TABLET PO SCH ×2 (08:22→22:44)
[2021-12-25] MEDS: NYSTATIN 500,000 UNIT/5 ML UDCUP SWISH/SWAL SCH ×4 (08:22→22:45)
[2021-12-25] MEDS: ASPIRIN EC 81 MG TABLET PO SCH (08:22)
[2021-12-25] MEDS: FERROUS SULFATE 325 MG TABLET PO SCH ×2 (08:22→17:17)
[2021-12-25] MEDS: DOCUSATE SODIUM 100 MG CAPSULE PO SCH ×2 (08:23→22:45)
[2021-12-25] MEDS: PANTOPRAZOLE 40 MG TABLET PO SCH (08:27)
[2021-12-25] MEDS ORDERED: POTASSIUM CHLORIDE 20 MEQ TABLET PO SCH (09:00)
[2021-12-25] MEDS: ALBUTEROL INHALER 18 GM INH SCH ×2 (10:04→17:24)
[2021-12-25] MEDS: FLUCONAZOLE INJ 200 MG/100 ML PREMIX IV SCH (15:15)
[2021-12-25] MEDS ORDERED: DEXTROSE 10% 1,000 ML IV PRN (17:00)
[2021-12-25] MEDS: MULTIVITAMIN IV SCH (17:17)
[2021-12-25] MEDS: SELENIUM IV SCH (17:17)
[2021-12-25] MEDS: methylPREDNISolone SOD SUC 40 MG/1 ML VIAL IV SCH (17:17)
[2021-12-25] MEDS: [UNRECOGNIZED DRUG - OTHER] IV SCH (17:17)
[2021-12-25] MEDS: ZINC IV SCH (17:17)
[2021-12-25] MEDS: COPPER IV SCH (17:17)
[2021-12-25] MEDS: MANGANESE IV SCH (17:17)
[2021-12-25] MEDS: MONTELUKAST 10 MG TABLET PO SCH (22:44)
[2021-12-25] MEDS: MIRTAZAPINE 15 MG TABLET PO SCH (23:16)
[2021-12-26] MEDS: methylPREDNISolone SOD SUC 40 MG/1 ML VIAL IV SCH ×3 (01:20→16:06)
[2021-12-26 05:25] LABS: Basophils % 0.3 % (0.0-0.8); Hematocrit 26.7 VOL% (35.7-47.0); Hemoglobin 8.1 GM/DL (12.0-16.0); Immature Granulocytes % 0.6 %; Immature Granulocytes Absolute 0.02 #; Lymphocytes # 0.7 10*3/uL (1.4-4.0); Lymphocytes % 22.9 % (21.3-54.2); Mean Corpuscular HGB Conc 30.3 GM/DL (32-36); Mean Corpuscular Volume 91.8 FL (87-102); Mean Platelet Volume 12.2 FL (9.6-12.0); Monocytes # 0.1 10*3/uL (0.11-0.8); Monocytes % 2.5 % (1.7-12.7); Neutrophils % 73.7 % (38.7-73.9); Platelet Count 113 T/CUMM (130-400); Red Blood Count 2.91 MC/CUMM (3.8-5.5); White Blood Count 3.2 T/CUMM (4-12)
[2021-12-26] MEDS: CLINDAMYCIN INJ 600 MG/50 ML PREMIX IV SCH ×3 (05:25→22:39)
[2021-12-26 05:32] LABS: Calcium 8.7 MG/DL (8.5-10.1); Osmolality,Calculated 295.8 MOS/KG (273-304); Phosphorous 5.1 MG/DL (2.5-4.9); Potassium 4.6 MMOL/L (3.5-5.1)
[2021-12-26 05:53] LABS: Band Neutrophils 5 % (0-10); Hypochromia Slight; Lymphocytes 19 % (20-55); Total Cells Counted 100
[2021-12-26] MEDS: LEVOTHYROXINE 75 MCG TABLET PO SCH (06:07)
[2021-12-26] MEDS: ALBUTEROL INHALER 18 GM INH SCH ×3 (08:38→17:12)
[2021-12-26] MEDS: BISOPROLOL 5 MG TABLET PO SCH ×2 (09:54→22:38)
[2021-12-26] MEDS: NYSTATIN 500,000 UNIT/5 ML UDCUP SWISH/SWAL SCH ×4 (09:54→22:38)
[2021-12-26] MEDS: BENZONATATE 100 MG CAPSULE PO SCH ×3 (09:54→22:38)
[2021-12-26] MEDS: ASPIRIN EC 81 MG TABLET PO SCH (09:54)
[2021-12-26] MEDS: PANTOPRAZOLE 40 MG TABLET PO SCH (09:54)
[2021-12-26] MEDS: DOCUSATE SODIUM 100 MG CAPSULE PO SCH ×2 (09:54→22:38)
[2021-12-26] MEDS: FERROUS SULFATE 325 MG TABLET PO SCH ×2 (09:54→16:05)
[2021-12-26] MEDS: MENTHOL/ZINC OXIDE OINT 71 GM JAR TOP SCH ×2 (09:55→22:40)
[2021-12-26] MEDS: INSULIN REGULAR 100 UNIT/ML SUBCUT SCH ×3 (11:46→17:02)
[2021-12-26] MEDS ORDERED: FAT EMULSION 20% 250 ML IV SCH (14:00)
[2021-12-26] MEDS: FLUCONAZOLE INJ 200 MG/100 ML PREMIX IV SCH (16:06)
[2021-12-26] MEDS: MULTIVITAMIN IV SCH (16:37)
[2021-12-26] MEDS: SELENIUM IV SCH (16:37)
[2021-12-26] MEDS: [UNRECOGNIZED DRUG - OTHER] IV SCH (16:37)
[2021-12-26] MEDS: ZINC IV SCH (16:37)
[2021-12-26] MEDS: MANGANESE IV SCH (16:37)
[2021-12-26] MEDS: COPPER IV SCH (16:37)
[2021-12-26] MEDS ORDERED: MANGANESE IV SCH (17:00)
[2021-12-26] MEDS ORDERED: MULTIVITAMIN IV SCH (17:00)
[2021-12-26] MEDS ORDERED: SELENIUM IV SCH (17:00)
[2021-12-26] MEDS ORDERED: COPPER IV SCH (17:00)
[2021-12-26] MEDS ORDERED: [UNRECOGNIZED DRUG - OTHER] IV SCH (17:00)
[2021-12-26] MEDS ORDERED: ZINC IV SCH (17:00)
[2021-12-26] MEDS: MONTELUKAST 10 MG TABLET PO SCH (22:38)
[2021-12-26] MEDS: MIRTAZAPINE 15 MG TABLET PO SCH (23:09)
[2021-12-27] MEDS: INSULIN REGULAR 100 UNIT/ML SUBCUT SCH ×4 (00:02→18:23)
[2021-12-27] MEDS ORDERED: FUROSEMIDE 40 MG/4 ML VIAL ONE (04:49)
[2021-12-27] MEDS ORDERED: MORPHINE 2 MG/1 ML SYRINGE IV ONE (04:52)
[2021-12-27] MEDS ORDERED: FUROSEMIDE 40 MG/4 ML VIAL IV ONE (04:52)
[2021-12-27] MEDS ORDERED: cefTRIAXone 1,000 MG in SODIUM CHLORIDE 0.9% 100 ML IV SCH (05:30)
[2021-12-27] MEDS: CLINDAMYCIN INJ 600 MG/50 ML PREMIX IV SCH ×3 (05:32→19:58)
[2021-12-27] MEDS: methylPREDNISolone SOD SUC 40 MG/1 ML VIAL IV SCH ×2 (05:32→10:52)
[2021-12-27 06:10] LABS: Basophils % 0.3 % (0.0-0.8); Hematocrit 25.4 VOL% (35.7-47.0); Hemoglobin 7.8 GM/DL (12.0-16.0); Immature Granulocytes Absolute 0.14 #; Lymphocytes # 0.6 10*3/uL (1.4-4.0); Mean Corpuscular HGB Conc 30.7 GM/DL (32-36); Mean Corpuscular Volume 91.4 FL (87-102); Mean Platelet Volume 12.1 FL (9.6-12.0); Monocytes # 0.8 10*3/uL (0.11-0.8); Monocytes % 5.3 % (1.7-12.7); Neutrophils % 89.4 % (38.7-73.9); Platelet Count 197 T/CUMM (130-400); Red Blood Count 2.78 MC/CUMM (3.8-5.5); Red Cell Distribution Width 17.8 % (9.3-17.3); White Blood Count 14.6 T/CUMM (4-12)
[2021-12-27 06:31] LABS: Bilirubin,Total 0.4 MG/DL (0.20-1.00); Calcium 8.9 MG/DL (8.5-10.1); Osmolality,Calculated 295.5 MOS/KG (273-304); Potassium 3.9 MMOL/L (3.5-5.1); Total Protein 8.1 G/DL (6.4-8.2)
[2021-12-27 06:37] LABS: Band Neutrophils 8 % (0-10); Hypochromia 1+; Lymphocytes 8 % (20-55); Metamyelocytes 1 %; Microcytosis 1+; Platelet Estimate Adequate; Total Cells Counted 100
[2021-12-27] MEDS: LEVOTHYROXINE 75 MCG TABLET PO SCH (07:39)
[2021-12-27] MEDS ORDERED: FUROSEMIDE 100 MG/10 ML VIAL IV ONE (08:19)
[2021-12-27 08:44] LABS: Arterial Base Excess iSTAT -14 MMOL/L (-2.5-2.5); Arterial Bicarbonate iSTAT 12.5 MMOL/L (20-26); Arterial O2 Saturation iSTAT 94 % (95-100); Arterial PCO2 iSTAT 32 MM HG (35-48); Arterial PO2 iSTAT 84 MM HG (80-95); Arterial Total CO2 iSTAT 13 MMO/L (23-27); Arterial pH iSTAT 7.198 (7.35-7.45)
[2021-12-27] MEDS ORDERED: HEPARIN 5,000 UNIT/1 ML VIAL SUBCUT SCH (09:00)
[2021-12-27] MEDS ORDERED: SODIUM BICARBONATE 50 MEQ/50 ML VIAL IV ONE (09:03)
[2021-12-27] MEDS: ASPIRIN EC 81 MG TABLET PO SCH (09:51)
[2021-12-27] MEDS: FERROUS SULFATE 325 MG TABLET PO SCH ×2 (09:51→17:32)
[2021-12-27] MEDS: PANTOPRAZOLE 40 MG TABLET PO SCH (09:52)
[2021-12-27] MEDS: DOCUSATE SODIUM 100 MG CAPSULE PO SCH ×2 (09:52→20:03)
[2021-12-27] MEDS: MENTHOL/ZINC OXIDE OINT 71 GM JAR TOP SCH ×2 (09:52→21:23)
[2021-12-27] MEDS: BISOPROLOL 5 MG TABLET PO SCH ×2 (09:52→20:03)
[2021-12-27] MEDS: BENZONATATE 100 MG CAPSULE PO SCH ×3 (09:52→20:03)
[2021-12-27] MEDS: CYPROHEPTADINE 4 MG TABLET PO SCH ×3 (09:52→20:03)
[2021-12-27] MEDS: INSULIN GLARGINE 100 UNIT/ML SUBCUT SCH (10:03)
[2021-12-27] MEDS: NYSTATIN 500,000 UNIT/5 ML UDCUP SWISH/SWAL SCH ×4 (10:52→21:22)
[2021-12-27] MEDS: MORPHINE 2 MG/1 ML SYRINGE IV PRN ×2 (10:55→13:36)
[2021-12-27] MEDS: SODIUM BICARB INJ 50 MEQ in SODIUM CHLORIDE 0.45% 1,000 ML IV SCH (11:22)
[2021-12-27] MEDS: ALBUTEROL INHALER 18 GM INH SCH ×2 (15:06→17:33)
[2021-12-27] MEDS: FLUCONAZOLE INJ 200 MG/100 ML PREMIX IV SCH (15:06)
[2021-12-27] MEDS ORDERED: ETOMIDATE 20 MG/10 ML VIAL IV ONE ×2 (15:42→15:56)
[2021-12-27] MEDS ORDERED: SUCCINYLCHOLINE 200 MG/10 ML VIAL ONE (15:42)
[2021-12-27] MEDS ORDERED: SUCCINYLCHOLINE 200 MG/10 ML VIAL IV ONE (15:56)
[2021-12-27] MEDS: MIDAZOLAM 100 MG in SODIUM CHLORIDE 0.9% 80 ML IV PRN (16:51)
[2021-12-27 17:29] LABS: Arterial Base Excess iSTAT -11 MMOL/L (-2.5-2.5); Arterial Bicarbonate iSTAT 15.8 MMOL/L (20-26); Arterial O2 Saturation iSTAT 96 % (95-100); Arterial PCO2 iSTAT 37 MM HG (35-48); Arterial PO2 iSTAT 99 MM HG (80-95); Arterial Total CO2 iSTAT 17 MMO/L (23-27)
[2021-12-27] MEDS: LINEZOLID INJ 600 MG/300 ML PREMIX IV SCH (17:50)
[2021-12-27] MEDS: ASCORBIC ACID 500 MG TABLET PO SCH (20:03)
[2021-12-27] MEDS: MONTELUKAST 10 MG TABLET PO SCH (20:03)
[2021-12-28] MEDS: INSULIN REGULAR 100 UNIT/ML SUBCUT SCH ×4 (00:22→17:40)
[2021-12-28] MEDS: ALBUTEROL INHALER 18 GM INH SCH ×4 (00:23→18:16)
[2021-12-28] MEDS: SODIUM BICARB INJ 50 MEQ in SODIUM CHLORIDE 0.45% 1,000 ML IV SCH ×3 (01:49→17:33)
[2021-12-28] MEDS: CLINDAMYCIN INJ 600 MG/50 ML PREMIX IV SCH ×2 (03:14→13:00)
[2021-12-28 04:05] LABS: Arterial Base Excess iSTAT -7 MMOL/L (-2.5-2.5); Arterial Bicarbonate iSTAT 18.5 MMOL/L (20-26); Arterial O2 Saturation iSTAT 100 % (95-100); Arterial PCO2 iSTAT 38 MM HG (35-48); Arterial PO2 iSTAT 265 MM HG (80-95); Arterial Total CO2 iSTAT 20 MMO/L (23-27); Arterial pH iSTAT 7.298 (7.35-7.45)
[2021-12-28] MEDS: LINEZOLID INJ 600 MG/300 ML PREMIX IV SCH ×2 (04:12→18:00)
[2021-12-28] MEDS: fentaNYL INJ 1,250 MCG in SODIUM CHLORIDE 0.9% 225 ML IV PRN ×2 (05:35→17:21)
[2021-12-28] MEDS: LEVOTHYROXINE 75 MCG TABLET PO SCH (05:44)
[2021-12-28 06:04] LABS: Basophils % 0.4 % (0.0-0.8); Eosinophils % 0.2 % (0.00-10.9); Hematocrit 20.6 VOL% (35.7-47.0); Immature Granulocytes % 1.4 %; Immature Granulocytes Absolute 0.08 #; Lymphocytes # 0.4 10*3/uL (1.4-4.0); Lymphocytes % 6.9 % (21.3-54.2); Mean Corpuscular HGB Conc 30.6 GM/DL (32-36); Monocytes # 0.2 10*3/uL (0.11-0.8); NRBC # 0.04 10*3/uL; Neutrophils % 88.1 % (38.7-73.9); Platelet Count 134 T/CUMM (130-400); Red Blood Count 2.29 MC/CUMM (3.8-5.5); Red Cell Distribution Width 18.4 % (9.3-17.3); White Blood Count 5.7 T/CUMM (4-12)
[2021-12-28 06:09] LABS: Hemoglobin 6.3 GM/DL (12.0-16.0)
[2021-12-28] MEDS ORDERED: SODIUM CHLORIDE 0.9% 1,000 ML IV PRN ×2 (06:12→08:56)
[2021-12-28 06:19] LABS: Calcium 7.9 MG/DL (8.5-10.1); Osmolality,Calculated 307.7 MOS/KG (273-304); Potassium 4.3 MMOL/L (3.5-5.1)
[2021-12-28 06:58] LABS: Hepatitis B Core IgM Quant 0.05 Index; Hepatitis B Surface Ag Quant < 0.10 Index; Hepatitis B Surface Ag Result Non-Reactive (NonReactive); Hepatitis C Virus Ab Quant 0.14 Index; Hepatitis C Virus Ab Result Non-Reactive (NonReactive)
[2021-12-28 07:08] LABS: Anisocytosis 1+; Band Neutrophils 37 % (0-10); Lymphocytes 9 % (20-55); Metamyelocytes 9 %; Platelet Estimate Adequate; Total Cells Counted 100
[2021-12-28] MEDS ORDERED: MIDAZOLAM 2 MG/2 ML VIAL IV ONE (08:00)
[2021-12-28] MEDS ORDERED: LIDOCAINE 2% VISCOUS 100 ML BOTTLE SWISH/SPIT ONE (08:00)
[2021-12-28] MEDS ORDERED: LIDOCAINE 2% 20 ML VIAL RESP TX ONE (08:00)
[2021-12-28] MEDS ORDERED: LIDOCAINE 1% 20 ML VIAL MISC INJ ONE (08:00)
[2021-12-28] MEDS ORDERED: SODIUM BICARBONATE 50 MEQ/50 ML VIAL IV ONE ×6 (08:17→17:04)
[2021-12-28] MEDS ORDERED: SODIUM CHLORIDE 0.9% 1,000 ML IV ONE (08:37)
[2021-12-28] MEDS ORDERED: ZINC SULFATE 220 MG CAPSULE PO SCH (09:00)
[2021-12-28] MEDS ORDERED: DEXAMETHASONE 4 MG/1 ML VIAL IV SCH (09:00)
[2021-12-28] MEDS ORDERED: PHENYLEPHRINE DRIP 40 MG/250 ML PREMIX IV ONE (09:08)
[2021-12-28 09:09] LABS: INR 1.1; PT Patient Result 12.5 SECS (10.5-12.0); Partial Thromboplastin Time 36.7 SECS (23.7-32.9)
[2021-12-28] MEDS ORDERED: PHENYLEPHRINE DRIP 40 MG/250 ML PREMIX IV PRN (09:19)
[2021-12-28] MEDS ORDERED: DOCUSATE SODIUM 100 MG/10 ML UDCUP NG PRN (09:30)
[2021-12-28] MEDS ORDERED: MAGNESIUM SULF RIDER 2 GM/50 ML PREMIX IV ONE (10:09)
[2021-12-28 10:11] LABS: Albumin 1.8 G/DL (3.4-5.0); Bilirubin,Total 0.5 MG/DL (0.20-1.00); Calcium 6.9 MG/DL (8.5-10.1); Osmolality,Calculated 313.1 MOS/KG (273-304); Potassium 3.5 MMOL/L (3.5-5.1); Total Protein 5.3 G/DL (6.4-8.2)
[2021-12-28] MEDS ORDERED: OLANZapine 5 MG TABLET PO SCH (10:40)
[2021-12-28] MEDS: MENTHOL/ZINC OXIDE OINT 71 GM JAR TOP SCH (11:14)
[2021-12-28] MEDS: BENZONATATE 100 MG CAPSULE PO SCH (11:15)
[2021-12-28] MEDS: MIDAZOLAM 100 MG in SODIUM CHLORIDE 0.9% 80 ML IV PRN (11:19)
[2021-12-28] MEDS: ASPIRIN EC 81 MG TABLET PO SCH (11:22)
[2021-12-28] MEDS: PANTOPRAZOLE 40 MG TABLET PO SCH (11:22)
[2021-12-28] MEDS: DOCUSATE SODIUM 100 MG CAPSULE PO SCH (11:22)
[2021-12-28] MEDS: NYSTATIN 500,000 UNIT/5 ML UDCUP SWISH/SWAL SCH ×3 (11:24→17:32)
[2021-12-28] MEDS ORDERED: ROCURONIUM 500 MG in SODIUM CHLORIDE 0.9% 500 ML IV PRN (11:40)
[2021-12-28] MEDS ORDERED: PHENYLEPHRINE INJ 160 MG in SODIUM CHLORIDE 0.9% 234 ML IV PRN (11:44)
[2021-12-28] MEDS ORDERED: NOREPINEPHRINE 4 MG/4 ML VIAL IV ONE ×2 (11:45→11:47)
[2021-12-28] MEDS: NOREPINEPHRINE 16 MG in SODIUM CHLORIDE 0.9% 234 ML IV PRN ×2 (11:45→18:21)
[2021-12-28] MEDS ORDERED: ALBUMIN 25% 25 GM/100 ML VIAL IV ONE (11:58)
[2021-12-28] MEDS: FERROUS SULFATE 325 MG TABLET PO SCH ×2 (12:45→17:32)
[2021-12-28] MEDS: INSULIN GLARGINE 100 UNIT/ML SUBCUT SCH (12:46)
[2021-12-28] MEDS: CYPROHEPTADINE 4 MG TABLET PO SCH ×2 (12:46→17:31)
[2021-12-28] MEDS: ASCORBIC ACID 500 MG TABLET PO SCH (12:47)
[2021-12-28] MEDS: BISOPROLOL 5 MG TABLET PO SCH (12:49)
[2021-12-28 14:20] LABS: Basophils % 0.4 % (0.0-0.8); Eosinophils % 0.3 % (0.00-10.9); Hematocrit 25.2 VOL% (35.7-47.0); Hemoglobin 7.3 GM/DL (12.0-16.0); Immature Granulocytes % 25.2 %; Immature Granulocytes Absolute 2.01 #; Lymphocytes # 1.1 10*3/uL (1.4-4.0); Lymphocytes % 14.3 % (21.3-54.2); Mean Platelet Volume 12.7 FL (9.6-12.0); Monocytes # 0.4 10*3/uL (0.11-0.8); Monocytes % 4.5 % (1.7-12.7); NRBC # 0.19 10*3/uL; Neutrophils % 55.3 % (38.7-73.9); Platelet Count 107 T/CUMM (130-400); Red Blood Count 2.47 MC/CUMM (3.8-5.5); Red Cell Distribution Width 18.2 % (9.3-17.3)
[2021-12-28 14:48] LABS: Band Neutrophils 23 % (0-10); Lymphocytes 20 % (20-55); Metamyelocytes 13 %; Nucleated Red Blood Cells 5 (0-5); Total Cells Counted 100
[2021-12-28 14:50] LABS: Burr Cells 1+
[2021-12-28 14:51] LABS: Anisocytosis 1+; Polychromasia Slight
[2021-12-28 14:54] LABS: Platelet Estimate Decreased
[2021-12-28 15:16] LABS: ABG Base Excess -24.9 MMOL/L (-2.5-2.5); ABG HCO3 6.7 MMOL/L (20-26); ABG Oxygen Saturation 87.2 % (95-100); ABG PCO2 51.9 MM HG (35-48); ABG PO2 86.8 MM HG (80-95)
[2021-12-28 15:25] LABS: ABG PH 6.817 (7.35-7.45)
[2021-12-28] MEDS: FLUCONAZOLE INJ 200 MG/100 ML PREMIX IV SCH (15:30)
[2021-12-28] MEDS ORDERED: VASOPRESSIN 100 UNITS in SODIUM CHLORIDE 0.9% 95 ML IV PRN (16:28)
[2021-12-28] MEDS ORDERED: CALCIUM GLUCONATE RIDER 1,000 MG/50 ML PREMIX IV ONE (16:45)
[2021-12-28] MEDS ORDERED: CALCIUM CHLORIDE 1,000 MG/10 ML SYRINGE IV ONE ×2 (16:50→17:05)
[2021-12-28] MEDS ORDERED: DEXTROSE 10% 250 ML BAG IV PRN ×2 (17:25→18:37)
[2021-12-28] MEDS ORDERED: DEXTROSE 10% 250 ML IV ONE ×2 (17:26→18:47)
[2021-12-28] MEDS ORDERED: SODIUM BICARB INJ 150 MEQ in DEXTROSE 5% 1,000 ML IV SCH (18:00)
[2021-12-28 18:37] VITALS: BP 89/44
[2021-12-28] MEDS ORDERED: DOCUSATE SODIUM 100 MG/10 ML UDCUP PO SCH (21:00)
[2021-12-29] MEDS ORDERED: ASPIRIN CHEW 81 MG TABLET PO SCH (09:00)
[2021-12-29] MEDS ORDERED: PANTOPRAZOLE 40 MG VIAL IV SCH (09:00)
== END 2021-12-28 20:16 | disposition expired | DRG 208 ==
LOC: N.EDINP 08:34 → N.ED 08:34 → N.3E 13:48 → SUATTDRO 12-26 09:08 → N.CC 12-27 07:50
PROVIDERS: ADMIT Internal Medicine; ATTEND Internal Medicine